=== PATIENT | female | born 1955 | race Caucasian/White ===

== ENCOUNTER 2025-02-10 18:05 | Emergency (ER) | payer OTHER, MEDICARE | END 2025-02-10 19:12 | disposition home or self-care (01) | LOC: JD.ED 18:05 | DX: M54.50 Low back pain, unspecified (principal); G89.29 Other chronic pain; V49.49XA Driver injured in collision with other motor vehicles in traffic accident, initial encounter; Y93.89 Activity, other specified | CPT/HCPCS: 99284 ==